=== PATIENT | male | born 1945 | race Caucasian/White ===

== ENCOUNTER 2020-09-28 19:43 | Inpatient (IN) | payer OTHER, MEDICAID ==
[~2020-09-28] VITALS: Ht 172.7 cm; Wt 104.3 kg
[2020-09-28] MEDS ORDERED: MORPHINE SULFATE 4 MG/ML CPJ (NOT FOR IM USE) IV STA (20:19)
[2020-09-28] MEDS ORDERED: ONDANSETRON HCL 4MG/2ML INJ IV STA (20:19)
[2020-09-28 20:53] LABS: BASOPHILS % 0.2 % (0.0-2.0); EOSINOPHILS % 0.9 % (0.0-5.0); LYMPHOCYTES % 12.9 % (20.0-50.0); MEAN CORPUSCULAR HEMOGLOBIN 26.1 pg (28.0-32.0); MEAN CORPUSCULAR VOLUME 80.9 fL (80.0-94.0); MONOCYTES % 8.1 % (2.0-8.0); NEUTROPHILS % 77.9 % (40.0-76.0); PLATELET 223 x1000/uL (130-400); RED BLOOD CELL COUNT 2.45 mill/uL (4.7-6.1); RED CELL DISTRIBUTION WIDTH 19.5 % (11.6-14.6)
[2020-09-28 20:59] LABS: CHLORIDE 102 mEq/L (98-107)
[2020-09-28 21:01] LABS: HEMATOCRIT. 19.9 % (42.0-52.0); HEMOGLOBIN. 6.4 g/dL (14.0-18.0)
[2020-09-28] MEDS ORDERED: IOHEXOL-350 100 ML BOTTLE ONE (22:59)
[2020-09-29] VITALS (61 sets, daily range): BP systolic 90–148; BP diastolic 45–114
[2020-09-29] MEDS ORDERED: MAGNESIUM 4 G PREMIX 100 ML IV ONE (04:45)
[2020-09-29] MEDS ORDERED: AMIODARONE HCL 150 MG in DEXT 5% WATER 97 ML IV ONE (04:45)
[2020-09-29] MEDS ORDERED: AMIODARONE HCL 900 MG in DEXT 5% WATER 500 ML IV ONE (05:00)
[2020-09-29] MEDS ORDERED: HEPARIN 5000 UNITS/ML VIAL IV ONE (05:00)
[2020-09-29] MEDS ORDERED: AMIODARONE HCL 900 MG in DEXT 5% WATER 482 ML IV ONE (05:00)
[2020-09-29 05:16] LABS: BASOPHILS % 0.3 % (0.0-2.0); EOSINOPHILS % 2.1 % (0.0-5.0); HEMATOCRIT. 23.7 % (42.0-52.0); HEMOGLOBIN. 7.4 g/dL (14.0-18.0); LYMPHOCYTES % 24.5 % (20.0-50.0); MEAN CORPUSCULAR HEMOGLOBIN 26.2 pg (28.0-32.0); MEAN CORPUSCULAR VOLUME 83.2 fL (80.0-94.0); MEAN PLATELET VOLUME 8.2 fl (7.4-10.4); MONOCYTES % 6.5 % (2.0-8.0); NEUTROPHILS % 66.6 % (40.0-76.0); PLATELET 215 x1000/uL (130-400); RED BLOOD CELL COUNT 2.85 mill/uL (4.7-6.1); RED CELL DISTRIBUTION WIDTH 18.2 % (11.6-14.6)
[2020-09-29 05:25] LABS: CHLORIDE 101 mEq/L (98-107)
[2020-09-29] MEDS ORDERED: FENTANYL CITRATE/PF 50MCG/ML 5ML VIAL ONE (05:43)
[2020-09-29] MEDS ORDERED: MIDAZOLAM HCL 5 MG/5 ML VIAL ONE (05:43)
[2020-09-29] MEDS ORDERED: IOHEXOL-300 100 ML BOTTLE ONE (05:44)
[2020-09-29] MEDS ORDERED: LIDOCAINE HCL 1% 20ML VIAL (Pyxis) INJ ONE (05:44)
[2020-09-29] MEDS ORDERED: IODIXANOL 320MG/ML 100 ML BOTTLE IV ONE (05:44)
[2020-09-29] MEDS ORDERED: IODIXANOL 320MG/ML 200ML BOTTLE ONE (06:34)
[2020-09-29] MEDS ORDERED: NICARDIPINE 100MCG/ML 10ML VIAL (CATH LAB) IV ONE (07:48)
[2020-09-29] MEDS ORDERED: NITROGLYCERIN 50MCG/ML 10ML VIAL (CATH LAB) IV ONE (07:48)
[2020-09-29] MEDS ORDERED: HEPARIN SODIUM 1,000 UNIT/1ML VIAL IV ONE (07:48)
[2020-09-29] MEDS ORDERED: PHENYLEPHRINE 100MCG/ML 10ML VIAL (CATH LAB) IV ONE (07:48)
[2020-09-29] MEDS ORDERED: ALBUMIN HUMAN 25GM/100ML (25%) IV PRN (08:30)
[2020-09-29] MEDS ORDERED: AMIODARONE HCL 900 MG in DEXT 5% WATER 482 ML IV SCH (09:00)
[2020-09-29] MEDS ORDERED: FUROSEMIDE 40MG/4ML VIAL IVP SCH (09:00)
[2020-09-29] MEDS ORDERED: DEXTROSE 50% WATER 50ML SYRINGE IV PRN (09:15)
[2020-09-29] MEDS: INSULIN LISPRO 100 UNITS/ML SUBCUT SCH ×4 (09:22→21:57)
[2020-09-29] MEDS ORDERED: BUSP10TA3 PO (09:58)
[2020-09-29] MEDS ORDERED: ALFU10TA9 PO (09:58)
[2020-09-29] MEDS ORDERED: LINA5TAB MT (09:58)
[2020-09-29] MEDS ORDERED: LOSA25TA26 MT (09:58)
[2020-09-29] MEDS ORDERED: CARV12.545 PO (09:58)
[2020-09-29] MEDS ORDERED: CLOP75TA33 MT (09:58)
[2020-09-29] MEDS ORDERED: LEVO5TAB13 MT (09:58)
[2020-09-29] MEDS ORDERED: DUTA0.5C37 PO (09:58)
[2020-09-29] MEDS ORDERED: METF-416 MT (09:58)
[2020-09-29] MEDS ORDERED: ALBU90AE INH (09:58)
[2020-09-29] MEDS ORDERED: APIX5TAB PO (09:58)
[2020-09-29] MEDS: MORPHINE SULFATE 2 MG/ML CPJ (NOT FOR IM USE) IV PRN ×2 (10:17→20:21)
[2020-09-29] MEDS: BLOOD SUGAR DIAGNOSTIC STRIP TEST SCH ×3 (12:13→21:00)
[2020-09-29] MEDS: FUROSEMIDE 40MG/4ML VIAL IVP SCH ×2 (14:08→21:23)
[2020-09-29] MEDS ORDERED: INSULIN GLARGINE UD 100 UNITS/ML SYR SUBCUT SCH ×3 (16:00→22:00)
[2020-09-29] MEDS ORDERED: AMIODARONE HCL 50MG/ML 9ML VIAL IV PRN (23:30)
[2020-09-30] VITALS (82 sets, daily range): BP systolic 77–137; BP diastolic 24–126
[2020-09-30] MEDS ORDERED: AMIODARONE HCL 900 MG in DEXT 5% WATER 500 ML IV PRN
[2020-09-30] MEDS ORDERED: INSULIN GLARGINE UD 100 UNITS/ML SYR SUBCUT SCH
[2020-09-30 05:32] LABS: BASOPHILS % 0.1 % (0.0-2.0); EOSINOPHILS % 1.8 % (0.0-5.0); HEMOGLOBIN. 7.2 g/dL (14.0-18.0); LYMPHOCYTES % 7.8 % (20.0-50.0); MEAN CORPUSCULAR HEMOGLOBIN 26.8 pg (28.0-32.0); MEAN CORPUSCULAR VOLUME 82.5 fL (80.0-94.0); MEAN PLATELET VOLUME 8.3 fl (7.4-10.4); MONOCYTES % 5.1 % (2.0-8.0); NEUTROPHILS % 85.2 % (40.0-76.0); PLATELET 194 x1000/uL (130-400); RED BLOOD CELL COUNT 2.67 mill/uL (4.7-6.1); RED CELL DISTRIBUTION WIDTH 19.1 % (11.6-14.6)
[2020-09-30] MEDS: BLOOD SUGAR DIAGNOSTIC STRIP TEST SCH ×3 (08:24→17:58)
[2020-09-30] MEDS: INSULIN LISPRO 100 UNITS/ML SUBCUT SCH ×4 (08:30→21:16)
[2020-09-30] MEDS: FUROSEMIDE 40MG/4ML VIAL IVP SCH ×2 (10:09→18:02)
[2020-09-30] MEDS: AMIODARONE HCL 200 MG TABLET PO SCH (21:16)
[2020-09-30] MEDS: INSULIN GLARGINE UD 100 UNITS/ML SYR SUBCUT SCH (21:29)
[2020-10-01] VITALS (46 sets, daily range): BP systolic 88–155; BP diastolic 48–93
[2020-10-01 05:57] LABS: BASOPHILS % 0.3 % (0.0-2.0); HEMATOCRIT. 21.8 % (42.0-52.0); HEMOGLOBIN. 7.1 g/dL (14.0-18.0); LYMPHOCYTES % 15.2 % (20.0-50.0); MEAN CORPUSCULAR HEMOGLOBIN 26.4 pg (28.0-32.0); MEAN PLATELET VOLUME 8.3 fl (7.4-10.4); MONOCYTES % 8.2 % (2.0-8.0); NEUTROPHILS % 73.3 % (40.0-76.0); PLATELET 190 x1000/uL (130-400); RED BLOOD CELL COUNT 2.69 mill/uL (4.7-6.1); RED CELL DISTRIBUTION WIDTH 19.7 % (11.6-14.6)
[2020-10-01] MEDS: INSULIN LISPRO 100 UNITS/ML SUBCUT SCH ×4 (08:20→21:51)
[2020-10-01] MEDS: BLOOD SUGAR DIAGNOSTIC STRIP TEST SCH ×4 (08:29→20:21)
[2020-10-01] MEDS: AMIODARONE HCL 200 MG TABLET PO SCH (08:31)
[2020-10-01] MEDS: FUROSEMIDE 40MG/4ML VIAL IVP SCH ×2 (08:31→18:02)
[2020-10-01] MEDS: MORPHINE SULFATE 2 MG/ML CPJ (NOT FOR IM USE) IV PRN (08:32)
[2020-10-01] MEDS: DOCUSATE SODIUM 100MG CAPSULE PO SCH ×2 (10:25→18:02)
[2020-10-01] MEDS: INSULIN GLARGINE UD 100 UNITS/ML SYR SUBCUT SCH ×2 (10:26→21:51)
[2020-10-01] MEDS: ACETAMINOPHEN 325MG TABLET PO PRN (21:50)
[2020-10-01] MEDS: CARVEDILOL 3.125 MG TABLET PO SCH (21:50)
[2020-10-02] VITALS: BP 84/52
[2020-10-02 04:00] VITALS: BP 101/65
[2020-10-02] MEDS: INSULIN LISPRO 100 UNITS/ML SUBCUT SCH ×4 (07:40→21:00)
[2020-10-02] MEDS: BLOOD SUGAR DIAGNOSTIC STRIP TEST SCH ×4 (07:43→21:24)
[2020-10-02 08:00] VITALS: BP 98/66
[2020-10-02] MEDS: FUROSEMIDE 40MG/4ML VIAL IVP SCH ×2 (08:53→16:34)
[2020-10-02] MEDS: AMIODARONE HCL 200 MG TABLET PO SCH (09:11)
[2020-10-02] MEDS: DOCUSATE SODIUM 100MG CAPSULE PO SCH ×2 (09:11→16:34)
[2020-10-02] MEDS: CARVEDILOL 3.125 MG TABLET PO SCH ×2 (09:11→21:00)
[2020-10-02] MEDS: INSULIN GLARGINE UD 100 UNITS/ML SYR SUBCUT SCH ×2 (11:13→21:25)
[2020-10-02 12:00] VITALS: BP 98/60
[2020-10-02 16:00] VITALS: BP 101/58
[2020-10-02 20:00] VITALS: BP 102/59
[2020-10-02 21:23] LABS: BASOPHILS % 0.4 % (0.0-2.0); EOSINOPHILS % 4.8 % (0.0-5.0); HEMATOCRIT. 22.2 % (42.0-52.0); HEMOGLOBIN. 7.5 g/dL (14.0-18.0); LYMPHOCYTES % 14.6 % (20.0-50.0); MEAN CORPUSCULAR VOLUME 80.2 fL (80.0-94.0); MEAN PLATELET VOLUME 8.2 fl (7.4-10.4); MONOCYTES % 9.3 % (2.0-8.0); NEUTROPHILS % 70.9 % (40.0-76.0); PLATELET 231 x1000/uL (130-400); RED BLOOD CELL COUNT 2.76 mill/uL (4.7-6.1); RED CELL DISTRIBUTION WIDTH 19.3 % (11.6-14.6)
[2020-10-02] MEDS: MORPHINE SULFATE 2 MG/ML CPJ (NOT FOR IM USE) IV PRN (21:30)
[2020-10-03] VITALS: BP 101/66
[2020-10-03 04:00] VITALS: BP 107/61
[2020-10-03 06:23] LABS: BASOPHILS % 0.4 % (0.0-2.0); EOSINOPHILS % 4.9 % (0.0-5.0); HEMOGLOBIN. 7.2 g/dL (14.0-18.0); LYMPHOCYTES % 19.6 % (20.0-50.0); MEAN CORPUSCULAR HEMOGLOBIN 26.3 pg (28.0-32.0); MEAN CORPUSCULAR VOLUME 80.3 fL (80.0-94.0); MEAN PLATELET VOLUME 8.3 fl (7.4-10.4); MONOCYTES % 12.3 % (2.0-8.0); NEUTROPHILS % 62.8 % (40.0-76.0); PLATELET 229 x1000/uL (130-400); RED BLOOD CELL COUNT 2.75 mill/uL (4.7-6.1); RED CELL DISTRIBUTION WIDTH 19.4 % (11.6-14.6)
[2020-10-03 06:33] LABS: CHLORIDE 101 mEq/L (98-107)
[2020-10-03] MEDS: INSULIN LISPRO 100 UNITS/ML SUBCUT SCH ×4 (07:38→20:32)
[2020-10-03] MEDS: BLOOD SUGAR DIAGNOSTIC STRIP TEST SCH ×4 (07:38→20:35)
[2020-10-03 08:00] VITALS: BP 114/63
[2020-10-03] MEDS: FUROSEMIDE 40MG/4ML VIAL IVP SCH ×2 (08:17→17:35)
[2020-10-03] MEDS: AMIODARONE HCL 200 MG TABLET PO SCH (08:18)
[2020-10-03] MEDS: MORPHINE SULFATE 2 MG/ML CPJ (NOT FOR IM USE) IV PRN ×2 (08:18→13:04)
[2020-10-03] MEDS: CARVEDILOL 3.125 MG TABLET PO SCH ×2 (08:18→20:29)
[2020-10-03] MEDS: DOCUSATE SODIUM 100MG CAPSULE PO SCH ×2 (08:18→17:00)
[2020-10-03 10:11] LABS: FOLIC ACID (FOLATE) SERUM >20 ng/mL ng/mL (>5.38)
[2020-10-03 10:12] LABS: FERRITIN 21 ng/mL (22-322)
[2020-10-03 10:33] LABS: TOTAL IRON BINDING CAPACITY 495 ug/dL (250-450)
[2020-10-03 11:02] LABS: VITAMIN B12 SERUM 528 pg/mL (211-911)
[2020-10-03 12:00] VITALS: BP 103/53
[2020-10-03] MEDS: INSULIN GLARGINE UD 100 UNITS/ML SYR SUBCUT SCH ×2 (13:05→21:39)
[2020-10-03] MEDS ORDERED: AMI2 PO (13:35)
[2020-10-03] MEDS ORDERED: APIX5TAB MT (13:35)
[2020-10-03] MEDS ORDERED: FERR-71 MT (13:35)
[2020-10-03] MEDS ORDERED: COR3 PO (13:35)
[2020-10-03] MEDS ORDERED: LISI20TA31 MT (13:35)
[2020-10-03 16:00] VITALS: BP 113/27
[2020-10-03 17:16] LABS: BG BASE EXCESS 7.5 mmol/L (-2.0-2.0); BG CARBOXYHEMOGLOBIN 0.7 % (0.5-1.5); BG DEOXYHEMOGLOBIN 4.4 % (0.0-5.0); BG FRACTION INSPIRED OXYGEN 21; BG HCO3 ACT 32.2 mmol/L (22.0-26.0); BG METHEMOGLOBIN 0.4 % (0.0-1.5); BG OXYGEN SATURATION 95.6 % (92.0-98.5); BG OXYHEMOGLOBIN 94.5 % (94.0-97.0); BG PCO2 47.3 mmHg (35.0-45.0); BG PH 7.451 (7.350-7.450); BG PO2 82.1 mmHg (75.0-100.0); BG SAMPLE SITE RIGHT RADIAL; BG TOTAL HEMOGLOBIN 7.6 g/dL (12.0-18.0); BG VENT MODE ROOM AIR
[2020-10-03 20:00] VITALS: BP_SYST 106; BP_DIAS 27; BP_DIAS 67
[2020-10-03] MEDS: ACETAMINOPHEN 325MG TABLET PO PRN (20:42)
[2020-10-04] VITALS: BP 110/59
[2020-10-04 04:00] VITALS: BP 104/64
[2020-10-04 08:00] VITALS: BP 104/60
[2020-10-04] MEDS: CARVEDILOL 3.125 MG TABLET PO SCH ×2 (09:00→20:15)
[2020-10-04] MEDS: AMIODARONE HCL 200 MG TABLET PO SCH (09:29)
[2020-10-04] MEDS: FUROSEMIDE 40MG/4ML VIAL IVP SCH (09:29)
[2020-10-04] MEDS: DOCUSATE SODIUM 100MG CAPSULE PO SCH ×2 (09:29→17:26)
[2020-10-04] MEDS: INSULIN GLARGINE UD 100 UNITS/ML SYR SUBCUT SCH ×2 (09:34→22:00)
[2020-10-04 12:00] VITALS: BP 108/68
[2020-10-04] MEDS: INSULIN LISPRO 100 UNITS/ML SUBCUT SCH ×3 (12:40→21:00)
[2020-10-04] MEDS: BLOOD SUGAR DIAGNOSTIC STRIP TEST SCH ×3 (13:08→20:14)
[2020-10-04] MEDS ORDERED: BLOO-1465 MT (15:02)
[2020-10-04 16:00] VITALS: BP 114/68
[2020-10-04 20:00] VITALS: BP 99/55
[2020-10-05] VITALS: BP 114/70
[2020-10-05 04:00] VITALS: BP 108/62
[2020-10-05] MEDS: BLOOD SUGAR DIAGNOSTIC STRIP TEST SCH (05:03)
[2020-10-05] MEDS: INSULIN LISPRO 100 UNITS/ML SUBCUT SCH (05:36)
[2020-10-05] MEDS: AMIODARONE HCL 200 MG TABLET PO SCH (07:56)
[2020-10-05] MEDS: CARVEDILOL 3.125 MG TABLET PO SCH (07:57)
[2020-10-05] MEDS: DOCUSATE SODIUM 100MG CAPSULE PO SCH (07:57)
[2020-10-05 08:00] VITALS: BP 121/73
[2020-10-05] MEDS ORDERED: FUROSEMIDE 40MG TABLET PO SCH (09:00)
[2020-10-05] MEDS ORDERED: LISINOPRIL 5MG TABLET PO SCH (09:00)
[2020-10-05] MEDS: INSULIN GLARGINE UD 100 UNITS/ML SYR SUBCUT SCH (10:10)
[2020-10-05 11:52] VITALS: BP 121/73
[2020-10-05 12:00] VITALS: BP 131/82
== END 2020-10-05 14:28 | disposition home health service (06) | DRG 280 ==
LOC: ER 19:43 → CVICU 09-29 05:19 → EDBEDREQTM 09-29 05:22 → EDBEDREQSVC 09-29 05:22 → EDBEDREQ 09-29 05:22 → 8WST 10-01 16:54
PROVIDERS: ADMIT Internal Medicine; ATTEND Internal Medicine
PROC: 30233N1 Transfusion of Nonautologous Red Blood Cells into Peripheral Vein, Percutaneous Approach (ICD-10-PCS; 2020-09-28)
PROC: 4A023N7 Measurement of Cardiac Sampling and Pressure, Left Heart, Percutaneous Approach (ICD-10-PCS; principal; 2020-09-29)
PROC: B2111ZZ Fluoroscopy of Multiple Coronary Arteries using Low Osmolar Contrast (ICD-10-PCS; 2020-09-29)
PROC: B2151ZZ Fluoroscopy of Left Heart using Low Osmolar Contrast (ICD-10-PCS; 2020-09-29)
PROC: 5A12012 Performance of Cardiac Output, Single, Manual (ICD-10-PCS; 2020-09-29)
PROC: 5A2204Z Restoration of Cardiac Rhythm, Single (ICD-10-PCS; 2020-09-29)
DX: I21.09 ST elevation (STEMI) myocardial infarction involving other coronary artery of anterior wall (principal); I46.2 Cardiac arrest due to underlying cardiac condition; I49.01 Ventricular fibrillation; J96.00 Acute respiratory failure, unspecified whether with hypoxia or hypercapnia; N17.0 Acute kidney failure with tubular necrosis; I50.43 Acute on chronic combined systolic (congestive) and diastolic (congestive) heart failure; D62 Acute posthemorrhagic anemia; E44.1 Mild protein-calorie malnutrition; I47.2 Ventricular tachycardia; E66.9 Obesity, unspecified; I11.0 Hypertensive heart disease with heart failure; I25.10 Atherosclerotic heart disease of native coronary artery without angina pectoris; I48.91 Unspecified atrial fibrillation; K80.20 Calculus of gallbladder without cholecystitis without obstruction; M48.00 Spinal stenosis, site unspecified; N40.0 Benign prostatic hyperplasia without lower urinary tract symptoms; Z20.822 Contact with and (suspected) exposure to COVID-19; R29.6 Repeated falls; E11.9 Type 2 diabetes mellitus without complications; Z82.49 Family history of ischemic heart disease and other diseases of the circulatory system; Z86.73 Personal history of transient ischemic attack (TIA), and cerebral infarction without residual deficits; Z79.01 Long term (current) use of anticoagulants; Z79.899 Other long term (current) drug therapy; Z79.84 Long term (current) use of oral hypoglycemic drugs; Z68.35 Body mass index [BMI] 35.0-35.9, adult
CPT/HCPCS: 36415; 36600; 71045; 72141; 72148; 74174; 80048; 80053; 80061; 82375; 82607; 82728; 82746; 82805; 82962; 83036; 83540; 83550; 83735; 83880; 84100; 84443; 84484; 85025; 85347; 86850; 86900; 86920; 87426; 93005; 93306; 93458; 97110; 97116; 97163; 99291; C1725; C1769; C1887; C1893; J0282; J1644; J1815; J1940; J2250; J2270; J2370; J2405; J3010; J3475; J3490; J7040; J7060; J7070; P9016; Q9967; A4315